=== PATIENT | female | born 1990 | race Caucasian/White ===

== ENCOUNTER → 2023-05-19 15:17 | Outpatient (CLI) | payer OTHER, MEDICAID, SELFPAY | PROVIDERS: Referring Provider Internal Medicine Critical Care Medicine; Visit Provider Internal Medicine Critical Care Medicine | DX: J45.40 Moderate persistent asthma, uncomplicated (principal); F17.210 Nicotine dependence, cigarettes, uncomplicated; R06.02 Shortness of breath | CPT/HCPCS: 94060; 94726; 94729 ==